=== PATIENT | female | born 1955 | race Caucasian/White ===

== ENCOUNTER 2017-01-20 08:28 | Observation (INO) | payer OTHER ==
--- NOTE | ~2017-01-20 | XA254 ---
[facility] A Service of [facility] RADIOLOGY TEXT RESULTS PATIENT: SHIMA BERMUDEZ LOCATION: C2A 239-01 : 59 UNIT #: [id number] AGE: [address]: Meño Griffiths MD SEX: F ORDER DR: [id number] [facility] [address]. [place], [place] [address] [id number] MR#: [id number] #: [id number] NAME: SHIMA BERMUDEZ : 1955 SEX: F STUDY DATE/TIME: 01/20/2017 10:33 UNIT: C2 ROOM: [facility] STUDY DESCRIPTION: XA Embo Venous Malform Si w/im Attending Physician: Meño Griffiths M.D. Referring Physician: Meño Griffiths M.D. Ordering Physician: Meño Griffiths M.D. Primary Care Physician: Gale Duarte M.D. MEDICAL IMAGING REPORT This report is preliminary unless electronic signature is present EXAM Celiac arteriogram with superselective embolization of the splenic artery DATE OF STUDY 01/20/2017 CLINICAL SUMMARY Ms. Bermudez is a 61-year-old female with a clotting disorder who is on anticoagulants. She has portal hypertension based on hypersplenism she has had a previous TIPS procedure which needed to be narrowed secondary to encephalopathy. She is currently having recurrent variceal bleeding and she returns for superselective embolization of the splenic artery. TECHNIQUE/FINDINGS Procedure, attendant risks and options were all discussed with the patient. She understands and wishes to proceed. Prophylactic antibiotics were administered. Patient was also administered Zofran and steroids prior to the procedure. Patient was cautioned that she may have rather severe pain in the left upper quadrant should the spleen go on to infarction. The right groin was cleansed with chlorhexadine solution and sterilely draped. Maximal sterile barrier technique was utilized during the entire procedure consisting of gowns, gloves, masks, hats and shoe covers. The entire field was sterile during the entire procedure. The right groin was anesthetized with Xylocaine and micropuncture performed in the right common femoral artery. Subsequently a 5 [place] sheath was placed. A 5-[place] Cobra II catheter was placed in the celiac axis and celiac angiography was performed. This shows multiple collaterals filling the splenic bed. The spleen appears significantly decreased in volumes compared with prior injections. At this point the catheter was advanced over a guidewire into the gastroduodenal artery and [facility] A Service of [facility] RADIOLOGY TEXT RESULTS PATIENT: SHIMA BERMUDEZ LOCATION: A 239-01 : 59 UNIT #: [id number] AGE: [address]: Meño Griffiths MD SEX: F ORDER DR: gastroduodenal angiography was performed. There is filling of the gastroduodenal to the right gastric and subsequently filling of the right gastric to the splenic artery which appears to be at least 78% of the remaining flow to the spleen. The diagnostic catheter was then advanced over a wire into the distal GEA near the midline. A 3-[place]izen [place] microcatheter was then advanced incrementally into the right gastric; this was injected. The catheter was then manipulated utilizing multiple steerable wires and advanced into the splenic artery. It was then manipulated into the more proximal splenic artery just beyond the embolization site from a year and a half ago. This was injected showing brisk flow within the splenic artery distal to the Amplatz embolization device. At this point, 10 mm x 20 cm AZUR coils were deployed in the splenic artery distal to the Amplatz device. The coils were then continually deployed back to the right gastric artery. Final injection in the right gastric shows only minimal flow remaining in the splenic artery. The microcatheter was removed and the base catheter was placed in the celiac axis and injection performed. There is no discernible splenic flow. At this point, the SMA was injected and again there was no flow identified to the spleen. The diagnostic catheter removed. The sheath in the right groin was injected with the tip in the external iliac artery opacifying the profunda and superficial femoral arteries, and common femoral artery and Angio-Seal closure was performed to stasis. The patient was admitted for 23-hour observation under Dr. Meño Griffiths. The procedure was extremely well tolerated. Total fluoroscopy time for the procedure was 22.4 minutes. A total 11 DSA runs were obtained. A total of 56 images were recorded. Total sedation time was 2 hours and 20 minutes. SUMMARY Superselective embolization of the patient's splenic artery through collaterals was performed successfully. Please see details above. Dictated by... Jonn Pickett M.D. THIS IS AN ELECTRONICALLY VERIFIED REPORT Jonn Pickett M.D. at 01/21/2017 7:24 AM IVORY/bonnie TD: 01/20/2017 15:29 JOB #: [id number] MEDICAL IMAGING REPORT Page 1 of 1 COPY
--- NOTE | ~2017-01-20 | HP ---
Unit #: [id number] #: [id number] Patient: SHIMA BERMUDEZ [id number] [address] [address] [id number] I MR#: [id number] NAME: SHIMA BERMUDEZ ROOM: 239 Age: 61 Sex: F Admission Date: 01/20/2017 : 1955 Attending Physician: Meño Griffiths M.D. Referring Physician: Meño Griffiths M.D. Primary Care Physician: Gale Duarte M.D. HISTORY AND PHYSICAL CHIEF COMPLAINT Admitted electively after spleen embolization. HISTORY OF PRESENT ILLNESS Ms. 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 She is being admitted because of history of recent recurrent GI bleeds for repeat embolization of the splenic artery. The procedure was done by Dr. Pickett and she is being admitted post procedure for overnight observation before discharge home. Super selective splenic embolization was done without incident and post procedure she does note she is having very little discomfort. No fever or chills. PAST MEDICAL HISTORY 1. History of polycythemia vera diagnosed three years ago when she presented with portal venous thrombosis. She has also been found to have a factor-V Leiden mutation and subsequently has portal hypertension with presinusoidal hypertension confirmed by wedge liver biopsy. She has had multiple episodes of GI bleeding and a secondary esophageal varices which has been banded, but most recently has had two hospital admissions for the same. 2. History of seizure disorder. 3. History of intracranial bleed secondary to a fall. 4. Hypertension. SOCIAL HISTORY The patient is . She does not smoke currently or drink any alcohol. She lives by herself. Her is in a [facility]. FAMILY HISTORY Negative for blood disorders. REVIEW OF SYSTEMS [place] review of systems was done. CONSTITUTIONAL: No changes. No change in weight. EYES: Negative. EARS, NOSE, MOUTH AND THROAT: Negative. CARDIOVASCULAR: Negative. RESPIRATORY: Negative. GASTROINTESTINAL: Multiple episodes of GI bleeding. GENITOURINARY: Negative. NEUROLOGIC: Negative. PSYCHIATRIC: Negative. Unit #: [id number] #: [id number] Patient: SHIMA BERMUDEZ SKIN: Negative. LYMPHATIC: Negative. ENDOCRINE: Negative. PHYSICAL EXAMINATION GENERAL: She is a pleasant middle-aged woman awake, alert and oriented times three. VITAL SIGNS: Temperature is 97.5, pulse rate is 63, respiratory rate 18, O2 saturation 90% on room air, blood pressure is 105/43. HEENT: Pupils are equal and react well to light. Mild pallor. No icterus. Mucous membranes are dry. NECK: Without adenopathy, jugular venous distension or thyromegaly. CARDIOVASCULAR: First and second heart sounds are heard and regular without murmurs, gallops or rubs. LUNGS: Chest expansion is symmetric. Bilateral equal air entry with normal breath sounds. ABDOMEN: Soft and nontender. Bowel sounds active. No organomegaly. EXTREMITIES: Warm with good pulses. No edema, cyanosis or clubbing. NEUROLOGIC: She is awake, alert and oriented times three without any focal findings. SKIN: Negative. PSYCHIATRIC: Normal affect. LYMPHATIC: Negative. DIAGNOSTIC STUDIES LABORATORY: Chemistry shows alkaline phosphatase of 95, which is low. Ammonia level is 495. CBC with a white blood cell count of 4.9, hemoglobin 9.8, platelets 401. Pro time is 11.2, INR 1.1. DISCUSSION/PLAN Ms. Shima Bermudez is 61 years old with a history of portal hypertension secondary to presinusoidal hypertension from polycythemia vera and factor-V Leiden mutation, both of which produce thrombophilia. She is admitted for super selective splenic artery embolization in view of right and left upper GI bleeding from esophageal varices in the recent few months. The procedure was done without incident and she tolerated the procedure well. She will be discharged home post procedure after being observed overnight if stable. She will need to be discharged home on p.o. antibiotics in view of risk of infection given splenic artery embolization. The plans were discussed in detail with Ms. Bermudez, who is in agreement. Dictated by Monique Olguin TD: 01/28/2017 09:23 JOB #: [id number] Unit #: [id number] #: [id number] Patient: SHIMA BERMUDEZ HISTORY AND PHYSICAL Page 1 of 1 X Meño Griffiths MD HISTORY AND PHYSICAL
[~2017-01-20 08:28] MED LIST: DILANTIN KAPSE100 MG PO; FLORASTOR250 M1 PO; IMODIUM MS REL1 EAC1 PO; OXCARBAZEPINE600 MG PO; XARELTO20 MG PO
[2017-01-20] MEDS ORDERED: BAYER CHEWABLE81 MG PO (08:32)
[2017-01-20] MEDS ORDERED: ENOXAPARIN80 MG/0.1 SUBQ (09:19)
[2017-01-20] MEDS ORDERED: FERRO-TIME325 MG PO (09:20)
[2017-01-20] MEDS ORDERED: FUROSEMIDE40 MG PO (09:20)
[2017-01-20] MEDS ORDERED: LEVSIN0.125 M3 PO (09:21)
[2017-01-20] MEDS ORDERED: KEPPRA500 M2 PO (09:22)
[2017-01-20] MEDS ORDERED: CHRONULAC10 GM/15 M PO (09:22)
[2017-01-20] MEDS ORDERED: PROAMATINE10 MG PO (09:23)
[2017-01-20] MEDS ORDERED: MAG-OX 400400 M1 PO (09:23)
[2017-01-20] MEDS ORDERED: NADOLOL20 MG PO (09:24)
[2017-01-20] MEDS ORDERED: PANTOPRAZOLE SO40 MG PO (09:25)
[2017-01-20] MEDS ORDERED: XIFAXAN550 MG PO (09:25)
[2017-01-20] MEDS ORDERED: SPIRONOLACTONE100 MG PO (09:26)
[2017-01-20] MEDS ORDERED: SUCRALFATE1 GM/10 ML PO (09:26)
[2017-01-20] MEDS ORDERED: ZINC GLUCONATE100 MG PO (09:27)
[2017-01-20 09:35] LABS: HEMOGLOBIN 9.8 gm/dL (12.0-16.0); INR 1.1; MEAN CELL VOLUME 83.3 FL (83-96); MEAN CORPUSCULAR HEMOGLOBIN 25.6 PG (28-34); MEAN CORPUSCULAR HGB CONC 30.7 g/dL (30-36); MEAN PLATELET VOLUME 10.2 FL (6.5-11.5); PARTIAL THROMBOPLASTIN TIME 27.6 SECONDS (23.5-31.3); PROTHROMBIN TIME (PATIENT) 11.2 SECONDS (9.6-11.5); RED BLOOD COUNT 3.83 X10e (3.90-5.30); RED CELL DISTRIBUTION WIDTH 20.8 % (11.0-15.5); WHITE BLOOD COUNT 4.9 X10e3 (4.0-10.5)
[2017-01-20 09:50] LABS: BUN/CREATININE RATIO 16.25; CALCIUM SERUM 8.6 mg/dL (8.4-10.2); CREATININE SERUM 0.8 mg/dL (0.6-1.4); GLOM FILT RATE Estimated 80.8 mL/min (>60); POTASSIUM 3.9 mmol/L (3.5-5.1)
== END 2017-01-21 13:46 | disposition home or self-care (01) ==
LOC: CIVR 08:28 → CSSDAY 13:37 → C2A 13:38
PROVIDERS: Internal Medicine Hematology & Oncology
DX: I81 Portal vein thrombosis (principal); D68.59 Other primary thrombophilia; D45 Polycythemia vera; K76.6 Portal hypertension; G40.309 Generalized idiopathic epilepsy and epileptic syndromes, not intractable, without status epilepticus; Z87.891 Personal history of nicotine dependence; G47.30 Sleep apnea, unspecified
CPT/HCPCS: 36415; 75726; 75774; 80048; 85027; 85610; 85730; 96372; 96374; C1760; C1769; C1884; C1887; C1894; G0378; J0295; J0696; J1100; J1200; J1650; J2250; J2270; J2405; J3010; Q9967